=== PATIENT | male | born 1965 | race Hispanic/Latino ===

== ENCOUNTER 2018-09-02 05:51 | Day surgery (SDC) | payer MEDICARE ==
[~2018-09-02] VITALS: Ht 167.6 cm; Wt 147.2 kg
[~2018-09-02 05:51] MED LIST: SODIUM CHLORIDE 0.9% 1000ML 1,000 ML IV ONE
[2018-09-02 07:08] VITALS: BP 127/62
[2018-09-02] MEDS ORDERED: SIMV20TA6 PO (07:22)
[2018-09-02] MEDS ORDERED: SERT100T12 PO (07:22)
[2018-09-02] MEDS ORDERED: CLON0.5T12 PO (07:22)
[2018-09-02] MEDS ORDERED: LEVO100T12 PO (07:22)
[2018-09-02] MEDS ORDERED: PERP4TAB10 PO (07:22)
[2018-09-02] MEDS ORDERED: MIRA50TA PO (07:22)
[2018-09-02] MEDS ORDERED: DIVA-78 PO ×2 (07:22)
[2018-09-02] MEDS ORDERED: BUSP30TA2 PO (07:22)
[2018-09-02] MEDS ORDERED: BENZ1TAB10 PO (07:22)
[2018-09-02] MEDS ORDERED: PROPOFOL 10 MG/ML 20ML VIAL IV ONE ×2 (07:48)
[2018-09-02 08:15] VITALS: BP 124/68
[2018-09-02 08:20] VITALS: BP 117/65
[2018-09-02 08:25] VITALS: BP 125/63
== END 2018-09-02 08:50 | disposition home or self-care (01) ==
LOC: DAH 05:51
PROVIDERS: ATTEND Internal Medicine Gastroenterology
DX: K31.89 Other diseases of stomach and duodenum (principal); K62.1 Rectal polyp; K63.5 Polyp of colon; E78.5 Hyperlipidemia, unspecified; F41.9 Anxiety disorder, unspecified; F32.9 Major depressive disorder, single episode, unspecified; J45.909 Unspecified asthma, uncomplicated; Z90.49 Acquired absence of other specified parts of digestive tract; Z79.899 Other long term (current) drug therapy; E66.01 Morbid (severe) obesity due to excess calories; Z68.43 Body mass index [BMI] 50.0-59.9, adult; K57.30 Diverticulosis of large intestine without perforation or abscess without bleeding
CPT/HCPCS: 43239; 45380; 45385; 88305; A4606; J2704 ×2; J7030